=== PATIENT | female | born 1985 | race Caucasian/White ===

== ENCOUNTER 2022-10-04 12:03 | Emergency (ER) | payer SELFPAY ==
[~2022-10-04] VITALS: Wt 70.3 kg
[2022-10-04] MEDS ORDERED: IBUPROFEN600 MG PO (16:30)
== END 2022-10-04 16:34 | disposition home or self-care (01) ==
LOC: ED 12:03
DX: R51.9 Headache, unspecified (principal)

== ENCOUNTER 2022-11-08 12:37 | Emergency (ER) | payer OTHER ==
[~2022-11-08] VITALS: Ht 167.6 cm; Wt 72.6 kg
[~2022-11-08 12:37] MED LIST: IBUPROFEN600 MG PO
[2022-11-08] MEDS ORDERED: ADDERALL 10 MG10 MG PO (17:42)
[2022-11-08] MEDS ORDERED: CLONAZEPAM0.5 M2 PO (17:44)
[2022-11-08 18:39] LABS: BASO # 0.1 10*3/uL (0.0-0.1); EOS # 0.1 10*3/uL (0.0-0.4); HEMATOCRIT 41.5 % (37.0-47.0); LYMPH # 3.1 10*3/uL (1.3-4.4); LYMPH % 26.6 % (27.0-41.0); MEAN CELL VOLUME 86.6 fl (81.0-99.0); MEAN CORPUSCULAR HGB 30.1 pg (27.0-31.0); MEAN CORPUSCULAR HGB CONC 34.7 g/dl (33.0-37.0); MEAN PLATELET VOLUME 10.2 fl (9.6-12.3); MONO # 0.8 10*3/uL (0.1-1.0); MONO % 6.8 % (3.0-9.0); NEUT # 7.5 10*3/uL (2.3-7.9); NEUT % 64.3 % (47.0-73.0); PLATELET COUNT AUTOMATED 350 10*3/uL (130-400); RED BLOOD COUNT 4.79 10*6/uL (4.10-5.10); RED CELL DISTRI WIDTH 12.9 % (0-14.5); WHITE BLOOD COUNT 11.7 10*3/uL (4.8-10.8)
[2022-11-08 18:58] LABS: ALKALINE PHOSPHATASE 82 U/L (46-116); BUN 8 mg/dl (9-23); CHLORIDE 101 mmol/L (98-107); CREATININE 0.69 mg/dL (0.55-1.02); LIPASE 23 U/L (12-53); POTASSIUM 3.4 mmol/L (3.4-5.1); SGPT/ALT 16 U/L (10-49); TOTAL PROTEIN 7.7 gm/dL (6.0-8.0)
[2022-11-08 22:31] LABS: BILIRUBIN Negative (Negative); BLOOD Negative (Negative); CLARITY Turbid (Clear); COLOR Dark Yellow (Yellow); GLUCOSE Negative (Negative); KETONE Negative (Negative); LEUKO ESTERASE Negative (Negative); NITRITE Negative (Negative); SPECIFIC GRAVITY 1.025 (1.001-1.030)
[2022-11-08] MEDS ORDERED: HYDROXYZINE HCL25 MG PO (23:20)
[2022-11-08] MEDS ORDERED: TOPCARE OMEPRAZ20 MG PO (23:20)
[2022-11-08] MEDS ORDERED: PEPCID20 MG PO (23:20)
== END 2022-11-08 23:44 | disposition home or self-care (01) ==
LOC: ED 12:37
PROVIDERS: Physician Assistant
DX: R10.9 Unspecified abdominal pain (principal); R11.2 Nausea with vomiting, unspecified; Z90.49 Acquired absence of other specified parts of digestive tract